=== PATIENT | female | born 2000 | race Caucasian/White ===

== ENCOUNTER 2024-01-15 21:35 | Emergency (ER) | payer BC, SELFPAY ==
[2024-01-15 21:36] VITALS: BP 123/79
[2024-01-15 22:06] LABS: HCG, Urine Qualitative Screen Positive
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
[2024-01-15 23:18] VITALS: BP 105/69
== END 2024-01-15 23:28 | disposition home or self-care (01) ==
LOC: EMR 21:35
PROVIDERS: Emergency Medicine; EMERGENCY PHYSICIAN Emergency Medicine
DX: S02.2XXA Fracture of nasal bones, initial encounter for closed fracture (principal); H11.32 Conjunctival hemorrhage, left eye; S05.12XA Contusion of eyeball and orbital tissues, left eye, initial encounter; R11.0 Nausea; Z32.01 Encounter for pregnancy test, result positive; Y04.2XXA Assault by strike against or bumped into by another person, initial encounter; Y92.481 Parking lot as the place of occurrence of the external cause
CPT/HCPCS: 99284; 70450; 70486; 81025